=== PATIENT | female | born 1965 | race African-American/Black ===

== ENCOUNTER 2018-07-24 21:29 | Emergency (ER) | payer OTHER ==
[~2018-07-24] VITALS: Ht 152.4 cm; Wt 53.5 kg
--- NOTE | 2018-07-24 22:15 | NUR ---
COLLECTED URINE SAMPLE, SENT TO LAB.
[2018-07-24 22:29] LABS: *URINE HCG, QUAL NEGATIVE (NEGATIVE)
--- NOTE | 2018-07-24 23:17 | NUR ---
Patient discharged to home in stable conditon. Written and verbal after care instructions given. Patient verbalizes understanding of instructions.
[2018-07-24 23:19] VITALS: BP 110/64
== END 2018-07-24 23:30 | disposition home or self-care (01) ==
LOC: ER 21:31
DX: J40 Bronchitis, not specified as acute or chronic (principal); J45.909 Unspecified asthma, uncomplicated; F12.10 Cannabis abuse, uncomplicated
CPT/HCPCS: 71046; 84703; A4663